=== PATIENT | female | born 1985 | race Hispanic/Latino ===

== ENCOUNTER 2016-12-30 20:40 | Inpatient (IN) ==
[2016-12-30] MEDS ORDERED: PEPCID PO ONE (20:50)
[2016-12-30] MEDS ORDERED: KEFZOL 1 GM/D5W 1 GM/50 ML IVPB IV PRN (20:50)
[2016-12-30] MEDS ORDERED: REGLAN PO ONE (20:50)
[2016-12-30] MEDS ORDERED: AMPICILLIN 2 GM/NS 2 GM/100 ML IVPB IV ONE (20:53)
[2016-12-30 21:22] LABS: URINE SOURCE VOIDED
[2016-12-30 21:26] LABS: BILIRUBIN URINE NEGATIVE (NEGATIVE); BLOOD URINE NEGATIVE (NEGATIVE); CLARITY CLEAR (CLEAR); COLOR YELLOW; GLUCOSE URINE NEGATIVE (NEGATIVE); LEUKOCYTES URINE NEGATIVE (NEGATIVE); NITRITE URINE NEGATIVE (NEGATIVE); PROTEIN URINE NEGATIVE (NEGATIVE); UROBILINOGEN URINE NORMAL
[2016-12-30 21:31] LABS: UR AMPHETAMINES QUAL NONE DETECTED (NONE DETECT); UR BARBITUATES QUAL NONE DETECTED (NONE DETECT); UR BENZODIAZEPIN QUAL NONE DETECTED (NONE DETECT); UR CANNABINOIDS QUAL NONE DETECTED (NONE DETECT); UR COCAINE QUAL NONE DETECTED (NONE DETECT); UR MDMA QUAL NONE DETECTED (NONE DETECT); UR METHADONE QUAL NONE DETECTED (NONE DETECT); UR METHAMPHETAMINE QUAL NONE DETECTED (NONE DETECT); UR OPIATES QUAL NONE DETECTED (NONE DETECT); UR OXYCODONE QUAL NONE DETECTED (NONE DETECT); UR PCP QUAL NONE DETECTED (NONE DETECT); UR TCA QUAL NONE DETECTED (NONE DETECT)
[2016-12-30] MEDS ORDERED: NS 500 ML IV SCH (21:48)
[2016-12-30] MEDS ORDERED: LR 1,000 ML IV SCH (22:00)
[2016-12-30] MEDS ORDERED: PEPCID IV ONE (22:00)
[2016-12-30] MEDS ORDERED: BICITRA PO ONE (22:00)
[2016-12-30] MEDS: LR 1,000 ML IV SCH ×2 (22:09→22:10)
[2016-12-30] MEDS ORDERED: DURAMORPH ONE (22:20)
[2016-12-30] MEDS ORDERED: EPHEDRINE ONE (22:20)
[2016-12-30] MEDS ORDERED: PITOCIN ONE (22:20)
[2016-12-30] MEDS ORDERED: PITOCIN 20 UNITS/LR 20 UNITS/1,000 ML IV.SOLN ONE (22:21)
[2016-12-30] MEDS ORDERED: [UNRECOGNIZED DRUG - OTHER] ONE (22:22)
[2016-12-30] MEDS ORDERED: TYLENOL PO ONE (22:23)
--- NOTE | 2016-12-30 22:23 | OB/GYN PROGRESS NOTE ---
Progress Note OB - . OB Progress Note: Laboratory Results - last 24 hr 12/30/16 12/30/16 12/30/16 20:40 20:40 20:45 Urine Source VOIDED Urine Color YELLOW Urine Clarity CLEAR Urine pH 7.0 Ur Specific [place] 1.000 Urine Protein NEGATIVE Urine Ketones NEGATIVE Urine Blood NEGATIVE Urine Nitrite NEGATIVE Urine Bilirubin NEGATIVE Urine Urobilinogen NORMAL Urine WBC NEGATIVE Urine Glucose NEGATIVE Membranes Rupture POSITIVE Urine Opiates Screen NONE DETECTED Ur Oxycodone Screen NONE DETECTED Urine Methadone Screen NONE DETECTED Ur Barbituates Screen NONE DETECTED Ur Tricyclics Screen NONE DETECTED Ur Phencyclidine Scrn NONE DETECTED Ur Amphetamines Screen NONE DETECTED U Methamphetamines Scrn NONE DETECTED Urine MDMA Screen NONE DETECTED U Benzodiazepines Scrn NONE DETECTED Urine Cocaine Screen NONE DETECTED U Cannabinoids Screen NONE DETECTED Pre-op diagnosis: 31yo @ 36w5d by late 36 week sono inconsistent with patient's reported LMP of 03/21/17 @ 40w4d, prior C/Sx2, breech presentation, SROM with light meconium, latent labor, iron deficiency anemia, no care FHT: Category 1 [place]: q4-5 minutes Cervix: 3/50/-3 grossly ruptured with light meconium Plan: repeat C/S, transfusion of 2 units of pRBCs -Abigail Hill MD REHABILITATION THERAPY TECHNICIAN
[2016-12-30] MEDS ORDERED: BENADRYL PO ONE (22:24)
[2016-12-30 22:29] LABS: HEMOGLOBIN 7.1 g/dL (12.0-16.0); MCH 17.6 PG (27-31); MCHC 28.4 g/dL (33-37); MPV 8.9 FL (7.4-10.4); PLT 252 X1000 (130-400); RBC 4.03 XMIL (4.2-5.4)
[2016-12-30 22:30] LABS: BASO% 0.1 % (0.0-0.8); EOS# 0.14 X1000 (0.0-0.7); EOS% 1.9 % (0.0-10.0); LYMPH# 1.35 X1000 (1.2-3.4); LYMPH% 18.3 % (20.5-51.1); MANUAL DIFF NEEDED? YES; MONO# 0.43 X1000 (0.11-0.59); MONO% 5.8 % (1.7-9.3); NEUT% 73.9 % (42.2-75.2)
[2016-12-30 22:51] LABS: BANDS 1 % (0-1); EOS 2 % (1-10); HYPOCHROM 2+; LYMPHS 18 % (21-51); MONO 5 % (1-9)
[2016-12-30] MEDS ORDERED: DIPRIVAN 1% ONE (23:48)
[2016-12-30] MEDS ORDERED: KETALAR ONE (23:52)
[2016-12-31] MEDS ORDERED: ZOFRAN ONE (00:39)
[2016-12-31] MEDS ORDERED: EPHEDRINE ONE (00:51)
[2016-12-31] MEDS ORDERED: AMPICILLIN 1 GM/NS 1 GM/50 ML IVPB IV SCH (00:53)
[2016-12-31] MEDS ORDERED: HYDROXYZINE PO PRN (01:49)
[2016-12-31] MEDS ORDERED: AMBIEN PO PRN (01:49)
[2016-12-31] MEDS ORDERED: PHENERGAN IM PRN (01:49)
[2016-12-31] MEDS ORDERED: DULCOLAX PR PRN (01:49)
[2016-12-31] MEDS ORDERED: BOOSTRIX VACCINE IM ONE (01:49)
[2016-12-31] MEDS ORDERED: PITOCIN IM PRN (01:49)
[2016-12-31] MEDS ORDERED: DEMEROL IM PRN (01:49)
[2016-12-31] MEDS ORDERED: CYTOTEC PO PRN (01:49)
[2016-12-31] MEDS ORDERED: DEMEROL PO PRN ×2 (01:49)
[2016-12-31] MEDS ORDERED: PITOCIN 20 UNITS/LR 20 UNITS/1,000 ML IV.SOLN IV ONE (01:49)
[2016-12-31] MEDS ORDERED: M-M-R II VACCINE SUBQ ONE (01:49)
[2016-12-31] MEDS ORDERED: HYDROXYZINE IM PRN (01:49)
[2016-12-31] MEDS ORDERED: MYLICON PO PRN (01:49)
[2016-12-31] MEDS ORDERED: BENADRYL IV PRN (02:10)
[2016-12-31] MEDS ORDERED: NARCAN INJ PRN (02:10)
[2016-12-31] MEDS ORDERED: ZOFRAN IV PRN ×2 (02:10)
[2016-12-31] MEDS ORDERED: ZOFRAN ODT PO PRN (02:10)
[2016-12-31] MEDS ORDERED: NORCO-5 PO PRN (02:13)
[2016-12-31] MEDS ORDERED: TORADOL IV SCH (02:15)
[2016-12-31] MEDS: PITOCIN 10 UNITS/LR 10 UNIT/1,000 ML IV.SOLN IV SCH ×2 (02:39→09:41)
[2016-12-31 08:39] LABS: BASO% 0.1 % (0.0-0.8); EOS# 0.07 X1000 (0.0-0.7); EOS% 0.9 % (0.0-10.0); HEMATOCRIT 24.9 % (37.0-47.0); HEMOGLOBIN 7.6 g/dL (12.0-16.0); IMM GRAN# 0.01 X1000 (0.0-0.04); IMM GRAN% 0.1 % (0.0-0.5); LYMPH% 16.3 % (20.5-51.1); MANUAL DIFF NEEDED? NO; MCH 20.2 PG (27-31); MCHC 30.5 g/dL (33-37); MCV 66.2 FL (81-99); MONO# 0.48 X1000 (0.11-0.59); MONO% 6.5 % (1.7-9.3); MPV 8.7 FL (7.4-10.4); NEUT% 76.1 % (42.2-75.2); PLT 183 X1000 (130-400); RBC 3.76 XMIL (4.2-5.4)
[2016-12-31] MEDS ORDERED: PERCOCET-5 PO PRN (15:48)
--- NOTE | 2016-12-31 15:56 | OB/GYN PROGRESS NOTE ---
Progress Note OB - . OB Progress Note: Vital Signs - 24 hr 12/31/16 01:15 12/31/16 01:25 12/31/16 01:35 Temperature 95.9 F L Pulse Rate 61 66 61 Respiratory Rate 18 18 18 Blood Pressure 111/83 Blood Pressure [Right Arm] 111/83 134/60 149/65 O2 Sat by Pulse Oximetry 100 100 100 12/31/16 01:45 12/31/16 01:55 12/31/16 02:05 Temperature Pulse Rate 66 64 64 Respiratory Rate 18 18 18 Blood Pressure Blood Pressure [Right Arm] 129/60 119/68 129/65 O2 Sat by Pulse Oximetry 100 100 100 12/31/16 02:15 12/31/16 04:00 12/31/16 07:15 Temperature 97.5 F L 97.3 F L Pulse Rate 64 74 85 Respiratory Rate 18 18 20 Blood Pressure 127/63 121/74 133/67 Blood Pressure [Right Arm] 127/63 O2 Sat by Pulse Oximetry 100 100 99 Laboratory Results - last 24 hr 12/30/16 12/30/16 12/30/16 20:00 20:00 20:00 WBC 7.37 RBC 4.03 L Hgb 7.1 L Hct 25.0 L MCV 62.0 L MCH 17.6 L MCHC 28.4 L RDW Std Deviation 21.2 H Plt Count 252 MPV 8.9 Immature Gran % (Auto) Neut % (Auto) 73.9 Lymph % (Auto) 18.3 L [place] % (Auto) 5.8 Eos % (Auto) 1.9 Baso % (Auto) 0.1 Immature Gran # (Auto) Neut # (Auto) 5.44 Lymph # (Auto) 1.35 Perkins # (Auto) 0.43 Eos # (Auto) 0.14 Baso # (Auto) 0.01 Segmented Neutrophils 74 Band Neutrophils 1 Lymphocytes 18 L Monocytes 5 Eosinophils 2 Hypochromia 2+ Microcytosis 4+ Urine Source Urine Color Urine Clarity Urine pH Ur Specific [place] Urine Protein Urine Ketones Urine Blood Urine Nitrite Urine Bilirubin Urine Urobilinogen Urine WBC Urine Glucose Membranes Rupture Urine Opiates Screen Ur Oxycodone Screen Urine Methadone Screen Ur Barbituates Screen Ur Tricyclics Screen Ur Phencyclidine Scrn Ur Amphetamines Screen U Methamphetamines Scrn Urine MDMA Screen U Benzodiazepines Scrn Urine Cocaine Screen U Cannabinoids Screen RPR NON-REACTIVE Blood Type O POSITIVE Antibody Screen NEGATIVE Crossmatch See Detail 12/30/16 12/30/16 12/30/16 20:40 20:40 20:45 WBC RBC Hgb Hct MCV MCH MCHC RDW Std Deviation Plt Count MPV Immature Gran % (Auto) Neut % (Auto) Lymph % (Auto) Perkins % (Auto) Eos % (Auto) Baso % (Auto) Immature Gran # (Auto) Neut # (Auto) Lymph # (Auto) Perkins # (Auto) Eos # (Auto) Baso # (Auto) Segmented Neutrophils Band Neutrophils Lymphocytes Monocytes Eosinophils Hypochromia Microcytosis Urine Source VOIDED Urine Color YELLOW Urine Clarity CLEAR Urine pH 7.0 Ur Specific [place] 1.000 Urine Protein NEGATIVE Urine Ketones NEGATIVE Urine Blood NEGATIVE Urine Nitrite NEGATIVE Urine Bilirubin NEGATIVE Urine Urobilinogen NORMAL Urine WBC NEGATIVE Urine Glucose NEGATIVE Membranes Rupture POSITIVE Urine Opiates Screen NONE DETECTED Ur Oxycodone Screen NONE DETECTED Urine Methadone Screen NONE DETECTED Ur Barbituates Screen NONE DETECTED Ur Tricyclics Screen NONE DETECTED Ur Phencyclidine Scrn NONE DETECTED Ur Amphetamines Screen NONE DETECTED U Methamphetamines Scrn NONE DETECTED Urine MDMA Screen NONE DETECTED U Benzodiazepines Scrn NONE DETECTED Urine Cocaine Screen NONE DETECTED U Cannabinoids Screen NONE DETECTED RPR Blood Type Antibody Screen Crossmatch 12/31/16 08:16 WBC 7.37 RBC 3.76 L Hgb 7.6 L Hct 24.9 L MCV 66.2 L MCH 20.2 L MCHC 30.5 L RDW Std Deviation 22.7 H Plt Count 183 MPV 8.7 Immature Gran % (Auto) 0.1 Neut % (Auto) 76.1 H Lymph % (Auto) 16.3 L Perkins % (Auto) 6.5 Eos % (Auto) 0.9 Baso % (Auto) 0.1 Immature Gran # (Auto) 0.01 Neut # (Auto) 5.60 Lymph # (Auto) 1.20 [place] # (Auto) 0.48 Eos # (Auto) 0.07 Baso # (Auto) 0.01 Segmented Neutrophils Band Neutrophils Lymphocytes Monocytes Eosinophils Hypochromia Microcytosis Urine Source Urine Color Urine Clarity Urine pH Ur Specific [place] Urine Protein Urine Ketones Urine Blood Urine Nitrite Urine Bilirubin Urine Urobilinogen Urine WBC Urine Glucose Membranes Rupture Urine Opiates Screen Ur Oxycodone Screen Urine Methadone Screen Ur Barbituates Screen Ur Tricyclics Screen Ur Phencyclidine Scrn Ur Amphetamines Screen U Methamphetamines Scrn Urine MDMA Screen U Benzodiazepines Scrn Urine Cocaine Screen U Cannabinoids Screen RPR Blood Type Antibody Screen Crossmatch Patient is without complaint. Pain is well controlled. Tolerating diet. Passed flatus. She has not ambulated. Johnson catheter in place. Exam: Gen: NAD, alert Abd: soft, appropriately tender, fundus firm and at the umbilicus, incision clean dry and intact with steri strips in place Pelvic: minimal lochia rubra A/P: 31yo who is POD#0 s/p RLTCS, iron deficiency anemia, doing well -continue routine care -encourage ambulation -d/c johnson -continue regular diet -Percocet initiated -d/c IVF -ferrous sulfate -Abigail Hill MD MACHINE FUR CLEANER
[2016-12-31] MEDS: MYLICON PO SCH ×4 (16:21→20:35)
[2016-12-31] MEDS: PERCOCET-10 PO PRN ×2 (16:31→20:35)
[2016-12-31] MEDS: MOTRIN PO PRN (20:35)
[2016-12-31] MEDS: FERROUS SULFATE PO SCH (20:35)
[2016-12-31] MEDS ORDERED: PERICOLACE PO SCH (21:00)
--- NOTE | 2016-12-31 23:52 | OPERATIVE NOTE ---
PROCEDURE DATE: 12/31/2016 PREOPERATIVE DIAGNOSES: 1. A 31-year-old, G5, P4004 at 36 weeks and 5 days by late sonogram of 36 weeks inconsistent with patient's reported last menstrual period of 03/21/2017 at 40 weeks and 4 days. 2. Prior x2. 3. Breech presentation. 4. Spontaneous rupture of membranes with light meconium. 5. Latent labor. 6. Iron deficiency anemia. 7. No care. POSTOPERATIVE DIAGNOSES: 1. A 31-year-old, G5, P4004 at 36 weeks and 5 days by late sonogram of 36 weeks inconsistent with patient's reported LMP of 03/21/2017 at 40 weeks and 4 days. 2. Prior x2. 3. Breech presentation. 4. Spontaneous rupture of membranes with light meconium. 5. Latent labor. 6. Iron deficiency anemia. 7. No care. 8. Status post repeat low transverse with breech delivery. SURGEON: Abigail Hill MD OYSTER WORKER: Nurse Merritt ANESTHESIA: Spinal. ESTIMATED BLOOD LOSS: 600 mL. COMPLICATIONS: None. INTRA-OP BLOOD TRANSFUSION: 2 units of pRBCs FINDINGS: Poor tissue quality noted of the rectus as well as of the fascia. Fascia was adherent to the rectus muscle. There was poor tissue quality found at the uterine incision and the tissue was easy to tear. Vesicouterine peritoneum adherent to lower uterine segment. Female delivered breech weighing 6lbs 11oz, APGARs 9,10. TECHNIQUE: Patient was taken to the OR. Timeout was held. A spinal was placed. The patient was prepped and draped in the normal sterile fashion. Patient was in the dorsal supine position in left lateral tilt. Anesthesia was found to be adequate. A Pfannenstiel incision was made down through the skin through the subcutaneous tissue down to the fascia. The fascia was then incised at the midline. The fascia was extended laterally using the scalpel. The rectus muscle was then dissected off of the fascia with the scalpel. The rectus muscle was then entered sharply with the scalpel. The rectus was in the midline. The peritoneum was identified and entered sharply. The peritoneum was then extended superiorly as well as laterally. The bladder blade was then inserted. No omental or intestinal adhesions were noted. The bladder flap was then created and the bladder blade was replaced. A low transverse uterine incision was then made. The uterine incision was then extended laterally. The butt of the baby was then grasped and delivered through the uterine incision followed by the right leg, then the left leg. A moist towel was placed over the back of the baby and the torso was then delivered, followed by the right arm and left arm. The nurse assisted with holding the baby's legs and the head was flexed and delivered without difficulty or trauma. The baby was bulb suctioned at delivery. The cord was clamped and cut and the baby was passed on to Pediatrics. Cord blood was obtained. Attempt was made to draw blood gas; however, no blood gas was able to be drawn. The placenta was then delivered intact. The uterus was then brought through the abdominal incision and was cleared of all clots and debris. The uterine incision was closed with locked running sutures of 0 Vicryl. A 2nd layer of imbrication was made using a 0 Vicryl and 2 [id number] sutures were placed at the edge of the uterine incision for good hemostasis. Good hemostasis was noted. The uterus was replaced into the abdominal cavity. Irrigation was carried out until clear. Surgicel was placed over the uterine incision. The peritoneum was then reapproximated with running sutures of 3-0 Vicryl. The fascia was then reapproximated with running sutures of 0 Vicryl. The subcutaneous tissue was reapproximated using running sutures of 2-0 Vicryl. The skin was closed with running sutures of 3- 0 Monocryl. A pressure dressing was placed. Patient tolerated the procedure well. cc: Abigail Hill MD MTDD
[2017-01-01] MEDS ORDERED: LR 1,000 ML IV SCH (01:05)
[2017-01-01] MEDS: MOTRIN PO PRN ×2 (04:23→15:55)
[2017-01-01] MEDS: PERCOCET-10 PO PRN ×4 (04:23→21:05)
[2017-01-01 06:01] LABS: BASO% 0.2 % (0.0-0.8); EOS% 3.1 % (0.0-10.0); HEMATOCRIT 24.9 % (37.0-47.0); HEMOGLOBIN 7.5 g/dL (12.0-16.0); IMM GRAN# 0.01 X1000 (0.0-0.04); IMM GRAN% 0.2 % (0.0-0.5); LYMPH% 23.3 % (20.5-51.1); MANUAL DIFF NEEDED? NO; MCH 20.1 PG (27-31); MCHC 30.1 g/dL (33-37); MCV 66.8 FL (81-99); MONO# 0.41 X1000 (0.11-0.59); MONO% 6.4 % (1.7-9.3); MPV 9.5 FL (7.4-10.4); NEUT% 66.8 % (42.2-75.2); PLT 167 X1000 (130-400); RBC 3.73 XMIL (4.2-5.4)
[2017-01-01] MEDS: MYLICON PO SCH ×4 (08:43→20:59)
[2017-01-01] MEDS: FERROUS SULFATE PO SCH ×2 (08:43→20:59)
[2017-01-01] MEDS ORDERED: LR 0 ML ONE (12:32)
--- NOTE | 2017-01-01 18:25 | OB/GYN PROGRESS NOTE ---
Progress Note OB - . OB Progress Note: Vital Signs - 24 hr 12/31/16 20:30 12/31/16 23:30 01/01/17 04:15 Temperature 96.8 F L 96.5 F L 96.4 F L Pulse Rate 97 H 82 70 Respiratory Rate 18 18 16 Blood Pressure 126/74 109/64 102/59 O2 Sat by Pulse Oximetry 98 99 99 01/01/17 07:30 01/01/17 07:35 01/01/17 11:15 Temperature 97.8 F 97.2 F L Pulse Rate 80 80 Respiratory Rate 20 20 Blood Pressure 122/93 110/54 135/71 O2 Sat by Pulse Oximetry 99 99 01/01/17 16:15 Temperature 97.6 F Pulse Rate 87 Respiratory Rate 20 Blood Pressure 117/66 O2 Sat by Pulse Oximetry 99 Laboratory Results - last 24 hr 01/01/17 04:30 WBC 6.44 RBC 3.73 L Hgb 7.5 L Hct 24.9 L MCV 66.8 L MCH 20.1 L MCHC 30.1 L RDW Std Deviation 22.6 H Plt Count 167 MPV 9.5 Immature Gran % (Auto) 0.2 Neut % (Auto) 66.8 Lymph % (Auto) 23.3 [place] % (Auto) 6.4 Eos % (Auto) 3.1 Baso % (Auto) 0.2 Immature Gran # (Auto) 0.01 Neut # (Auto) 4.31 Lymph # (Auto) 1.50 [place] # (Auto) 0.41 Eos # (Auto) 0.20 Baso # (Auto) 0.01 Patient reports feeling well. She is ambulating, voiding and tolerating diet without difficulty. She has passed flatus. Pain is well controlled. Exam: Gen: NAD, alert Abd: soft, appropriately tender, incision clean dry and intact with steri strips in place Ext: no edema, nontender, Teresa's- A/P: 31yo who is POD#1 s/p RLTCS, iron deficiency anemia, doing well -continue routine care -encourage ambulation -continue ferrous sulfate -continue PO pain meds -continue regular diet Dispo: home tomorrow -Abigail Hill MD UTILITY SYSTEMS REPAIRER OPERATOR
[2017-01-02] MEDS: MOTRIN PO PRN (07:01)
[2017-01-02] MEDS: PERCOCET-10 PO PRN (07:01)
[2017-01-02] MEDS: MYLICON PO SCH (08:43)
[2017-01-02] MEDS: FERROUS SULFATE PO SCH (08:44)
--- NOTE | 2017-03-01 18:08 | DISCHARGE SUMMARY ---
ADMISSION DATE: 12/30/2016 DISCHARGE DATE: 01/02/2017 ADMISSION DIAGNOSES: A 31-year-old, G5, P2-0-0-2, at 36 weeks and 5 days by a late 36 week sonogram with prior history of x2, breech presentation, spontaneous rupture of membranes with light meconium late in labor, iron deficiency anemia, no care. PROCEDURE DATE: 12/31/2016. PROCEDURE: Repeat low transverse with breech delivery. SURGEON: Abigail Hill MD. HOSPITAL COURSE: This 31-year-old, G5, P4-0-0-4, at 36 weeks and 6 days underwent a repeat low transverse with breech delivery. section was uncomplicated. Patient received 2 units of packed red blood cells intraoperatively due to iron-deficiency anemia. The patient's postoperative and care was unremarkable and patient was discharged home on postop day #2. PHYSICAL EXAM: Gen: NAD, alert Abd: soft, appropriately tender, incision clean dry and intact Pelvis: minimal lochia rubra Ext: nontender, no edema, Teresa's- DISCHARGE MEDICATIONS: Percocet and ibuprofen. DISCHARGE INSTRUCTIONS: 1. Patient to have nothing per vagina. 2. Patient may shower. 3. Patient to continue a regular diet. DISCHARGE FOLLOWUP: Patient to follow up with Dr. Hill in 2 and 6 weeks. cc: Abigail Hill MD [facility]
== END 2017-01-02 13:10 | disposition home or self-care (01) ==
LOC: P.LD 20:40
PROVIDERS: ADMIT Student in an Organized Health Care Education/Training Program; ATTEND Student in an Organized Health Care Education/Training Program